=== PATIENT | female | born 1980 ===

== ENCOUNTER 2017-07-11 05:50 | Day surgery (SDC) | payer MEDICARE, OTHER ==
[~2017-07-11] VITALS: Ht 162.6 cm; Wt 93.0 kg
[2017-07-11] VITALS (10 sets, daily range): BP systolic 107–117; BP diastolic 54–79
[2017-07-11] MEDS ORDERED: WELLBUTRIN SR100 MG ORAL (06:30)
[2017-07-11] MEDS ORDERED: AMBIEN10 M1 ORAL (06:30)
[2017-07-11] MEDS ORDERED: MIRTAZAPINE15 M3 ORAL (06:31)
[2017-07-11] MEDS ORDERED: MULTIVITAMINS1 EAC2 ORAL (06:32)
[2017-07-11] MEDS ORDERED: Bupivacaine 0.25% Inj 30ml INJ ONE (06:47)
[2017-07-11] MEDS ORDERED: Bacitracin Oint 15gm Tube TOPIC ONE (06:47)
[2017-07-11] MEDS ORDERED: TransDerm Scop 1mg/72HR Patch TDERMAL ONE (06:47)
[2017-07-11] MEDS ORDERED: Muri-Lube ONE ×2 (06:47→09:32)
[2017-07-11] MEDS ORDERED: Lidocaine 1% 10mg/ml/EPI 0.01mg/ml 50ml INJ ONE (06:48)
[2017-07-11] MEDS ORDERED: ceFAZolin sod 2 GM in NS 55 ML IVPB ONE (07:00)
[2017-07-11] MEDS ORDERED: ceFAZolin sod 1 GM in NS 55 ML IVPB ONE (07:00)
[2017-07-11] MEDS ORDERED: NS Irrig 1000ml ONE (07:30)
[2017-07-11] MEDS ORDERED: fentaNYL 100 mcg/2 mL IV ONE (07:30)
[2017-07-11] MEDS ORDERED: Ketorolac 30mg Inj ONE (07:30)
[2017-07-11] MEDS ORDERED: Propofol 200mg/20ml IV ONE (07:30)
[2017-07-11] MEDS ORDERED: Dexamethasone 4mg/ml vial ONE (07:30)
[2017-07-11] MEDS ORDERED: Zemuron 50mg/5ml Inj IV ONE (07:30)
[2017-07-11] MEDS ORDERED: LR 1000ml ONE (07:30)
[2017-07-11] MEDS ORDERED: Succinylcholine 20mg/ml 10ml vial ONE (07:30)
[2017-07-11] MEDS ORDERED: Midazolam 2mg/2ml Inj ONE (07:30)
[2017-07-11] MEDS ORDERED: Morphine Sulfate 10mg/ml Inj ONE (07:30)
--- NOTE | 2017-07-11 07:32 | Pre-Procedure Note/Attestation ---
Pre-Procedure Note/Attestation Complete Prior to Procedure Planned Procedure: bilateral Indications for Procedure Pre-Operative Diagnosis: gender dysphoria Attestation I attest that I discussed the nature of the procedure; its benefits; risks and complications; and alternatives (and the risks and benefits of such alternatives ), prior to the procedure, with the patient (or the patient's legal underwriting account representative). I attest that, if there was a reasonable possibility of needing a blood transfusion, the patient (or the patient's legal underwriting account representative) was given the [facility] standardized written summary, pursuant to the [place] Blood Safety Act ([place] Health and Safety Code # 1645, as amended). I attest that I re-evaluated the patient just prior to the surgery and that there has been no change in the patient's H&P, except as documented below: GAIL CHAHAL M.D. Jul 11, 2017 07:32
[2017-07-11] MEDS ORDERED: Dyna-Hex 2% Top Sol 2oz TOPIC ONE (08:30)
[2017-07-11] MEDS ORDERED: Metoclopramide 10mg/2ml Inj IVP PRN (08:30)
[2017-07-11] MEDS ORDERED: Ketorolac 30mg Inj IV PRN (08:30)
[2017-07-11] MEDS ORDERED: DiphenhydrAMINE 50mg/ml Inj IVP PRN (08:30)
[2017-07-11] MEDS ORDERED: Meperidine 50mg/ml Inj(FOR RIGORS ONLY) IV PRN (08:30)
[2017-07-11] MEDS ORDERED: LR 1000ml 1,000 ML IVLG SCH (08:30)
[2017-07-11] MEDS ORDERED: Midazolam 2mg/2ml Inj IVP PRN (08:30)
[2017-07-11] MEDS ORDERED: Hydromorphone 0.5mg/0.5ml inj IVP PRN (08:30)
--- NOTE | 2017-07-11 08:30 | Anethesia Preoperative Eval ---
Anesthesia Pre-op PMH/ROS General Date of Evaluation: Jul 11, 2017 Time of Evaluation: 07:22 Anesthesiologist: Ananda ASA Score: ASA 2 Mallampati Score Class I : Soft palate, uvula, fauces, pillars visible Class II: Soft palate, uvula, fauces visible Class III: Soft palate, base of uvula visible Class IV: Only hard plate visible Mallampati Classification: Class II Surgeon: Pavan Diagnosis: Gender dysphoria Surgical Procedure: Bilateral mastectomy Anesthesia History: none Social History: current smoker Family History: no anesthesia problems Allergies: Coded Allergies: No Known Allergies (Unverified , 07/09/17) Medications: see eMAR Past Medical History Cardiovascular: Denies: HTN, CAD, VT, valve dz, arrhythmia, other Pulmonary: Denies: asthma, COPD, EMANUEL, other Gastrointestinal/Genitourinary: Reports: GERD - mild, Denies: CRI, ESRD, other Neurologic/Psychiatric: Reports: depression/anxiety, Denies: dementia, CVA, TIA, other Endocrine: Denies: DM, hypothyroidism, steroids, other HEENT: Denies: cataract (L), cataract (R), glaucoma, NIKOLAI (L), NIKOLAI (R), other Hematology/Immune: Denies: anemia, DVT, bleeding disorder, other Musculoskeletal/Integumentary: Denies: OA, RA, DJD, DDD, edema, other Other: obesity PMH Narrative: as above PSxH Narrative: none Anesthesia Pre-op Phys. Exam Physician Exam Last Vital Signs Date Time Temp Pulse Resp B/P (MAP) Pulse Ox O2 Delivery O2 Flow Rate FiO2 07/11/17 06:33 98.1 67 18 117/66 97 Room Air Constitutional: NAD Neurologic: CN 2-12 intact Cardiovascular: RRR, no M/R/G Respiratory: CTA Gastrointestinal: S/NT/ND Airway Exam Mallampati Score: Class II MO: full Neck: flexible ROM: full Teeth: intact Dentures: no upper, no lower Anesthesia Pre-op A/P Labs see chart Urine Test Test 07/11/17 06:00 Urine HCG, Qualitative Negative Risk Assessment & Plan Assessment: ASA 2 Plan: GA with ETT PONV prevention Scopolamine patch order is in. Status Change Before Surgery: No Pre-Antibiotics Drug: Ancef 2gr. Given Within 1 Hr of Incision: Yes Time Given: 08:06 HERNESTO ATWOOD M.D. Jul 11, 2017 08:30
--- NOTE | 2017-07-11 12:01 | Operative Note - PDOC ---
Operative Note Operative Note Pre-op Diagnosis: gender dysphoria Procedure: bilateral extended mastectomy, bilateral nipple areola reconstruction with free nipple areola graft Post-op Diagnosis: same as pre-op Surgeon: Pavan Anesthesiologist: Ananda Anesthesia: general Specimen: yes - 1) right breast, 2) left breast Complications: none Condition: stable Estimated Blood Loss: volume - 50 cc Drains: LIAM - x2 Implant(s) used?: No Indications for Procedure gender dysphoria GAIL CHAHAL M.D. Jul 11, 2017 12:00
--- NOTE | 2017-07-11 12:02 | Discharge Instructions ---
Discharge Instructions Discharge Instructions Follow up with: Dr. Chahal Jul 16 1:30 pm Diet: regular Resume Normal Activity?: Yes Activity: ambulate For Surgical Patients Dressing Care: keep dry and clean May shower: No - sponge bathe only For Congestive Heart Failure Reminder Report to your physician any weight gain of 5 pounds or more in one week. GAIL CHAHAL M.D. Jul 11, 2017 12:02
--- NOTE | 2017-07-11 12:08 | Immediate Post-Op Evaluation ---
Immediate Post-Op Evalulation Immediate Post-Op Evalulation Procedure: Bilateral mastectomy with nipple reconstruction Date of Evaluation: Jul 11, 2017 Time of Evaluation: 12:07 IV Fluids: 1600 Blood Products: none Estimated Blood Loss: 100 Urinary Output: 200 Blood Pressure Systolic: 111 Blood Pressure Diastolic: 54 Pulse Rate: 102 Respiratory Rate: 22 O2 Sat by Pulse Oximetry: 98 Temperature (Fahrenheit): 98.6 Pain Score (1-10): 2 Nausea: No Vomiting: No Complications none Patient Status: awake, patent, extubated, none Hydration Status: adequate HERNESTO ATWOOD M.D. Jul 11, 2017 12:08
[2017-07-11] MEDS ORDERED: Norco 5mg/325mg tab ORAL PRN (12:15)
[2017-07-11] MEDS ORDERED: Tylenol #3 tab (300mg/30mg) ORAL PRN (12:15)
[2017-07-11] MEDS ORDERED: Hydromorphone 0.5mg/0.5ml inj SUBQ PRN (12:15)
--- NOTE | 2017-07-11 12:48 | 48 Hour Post Anesthesia Eval ---
Post Anesthesia Evaluation Procedure: Bilateral mastectomy with nipple reconstruction Date of Evaluation: Jul 11, 2017 Time of Evaluation: 12:47 Blood Pressure Systolic: 105 0: 72 Pulse Rate: 89 Respiratory Rate: 20 Temperature (Fahrenheit): 98.2 O2 Sat by Pulse Oximetry: 98 Airway: patent Nausea: No Vomiting: No Pain Intensity: 2 Hydration Status: adequate Cardiopulmonary Status: stable Mental Status/LOC: patient returned to baseline Follow-up Care/Observations: n/a Post-Anesthesia Complications: none Follow-up care needed: ready to discharge HERNESTO ATWOOD M.D. Jul 11, 2017 12:48
[2017-07-11] MEDS ORDERED: D5 1/2NS 1,000 ML IV SCH (15:30)
--- NOTE | 2017-07-11 16:15 | Operative Note - Dictated ---
DATE OF OPERATION: 07/11/2017 PREOPERATIVE DIAGNOSIS: Gender dysphoria. POSTOPERATIVE DIAGNOSIS: Gender dysphoria. PROCEDURE: 1. Bilateral mastectomy. 2. Bilateral nipple-areolar reconstruction with free full-thickness nipple-areolar grafts (each graft 6.25 cm2). 3. Closure of right breast with adjacent tissue transfer (8 x 2 cm). SURGEON: Daniel Browne M.D. ANESTHESIA: General. ESTIMATED BLOOD LOSS: 50 mL. SPECIMENS: 1. Right breast. 2. Left breast. DRAINS: A 15-[place] x2. COMPLICATIONS: None. CONDITION TO RECOVERY ROOM: Stable. INDICATION FOR PROCEDURE: This is a very pleasant 37-year-old transgender male, who has been undergoing the process of transition. He has the appropriate letter of support from his mental health therapist and he also meets all WPATH criteria for top surgery. I have discussed the risks, benefits, and alternatives of the procedure with him including, but not limited to bleeding, infection, scarring, nerve injury, asymmetry, contour deformity, hematoma, seroma, loss of nipple sensation, loss of nipple graft, and need for additional surgery including revision. I discussed the orientation of the incisions and the unpredictable nature of scarring. No guarantees were made regarding the outcome. All of his questions have been answered to the best of my ability. He verbalized understanding with everything that we discussed and wishes to proceed. DESCRIPTION OF PROCEDURE: The patient was identified in the preoperative holding area and marked in the standing position. He was then brought to the operating room where he was placed in the supine position on the operating room table with his arms extended on arm boards. All bony prominences were adequately padded. Sequential compression devices were placed and intravenous antibiotics were administered. After induction of anesthesia, the patient's chest was prepped and draped in sterile fashion. Starting on the left breast first, the nipple-areolar complex was placed on manual stretch. A ivanof bay measuring 2.5 x 2.5 cm was drawn centered around the nipple. Next, a #15 blade scalpel was used to harvest a full thickness composite graft. The graft was subsequently defatted and placed in wet gauze and placed on the back table. Next, I then made inframammary fold incision using a #10 blade scalpel. I then proceeded to dissect down through the subcutaneous tissues until the level of the pectoralis major fascia was reached. I then made the superior breast incision with a #10 blade scalpel. Dissection proceeded down through the subcutaneous tissues until Edna fascia was reached. Skin hooks were then used to retract the skin and a plane of dissection was then created between the breast parenchyma and the subcutaneous tissues heading in a superior direction until approximately at the level of the clavicle was reached. After this was done, I then proceeded to elevate the breast tissue off of the pectoralis major fascia proceeding from a medial to a lateral direction. The specimen was subsequently passed off the table. Hemostasis was achieved and the wound was irrigated. I placed a #15 [place] drain within the wound and brought it out through a separate stab incision and secured the drain using a 2-0 silk suture. I then shifted my attention to the contralateral side where the identical procedure was performed. Skin ken were used to temporarily reapproximate the skin. However, on the right breast there was an area laterally that could not be closed despite wide undermining in all directions. The gap between the skin in this area was approximately 8 x 2 cm. I then proceeded to extend the incision in a lateral direction in an oblique orientation heading towards the axilla. I then proceeded to undermine the inferior skin flap in a inferior and lateral direction, taking care to preserve the perforating intercostal vessels. After this was done, I was then able to advance the inferior tissues in a superior direction such that the skin could be reapproximated without any undue tension. Skin ken were then placed to reapproximate the skin in this area and the patient was then sat up on the operating room table, it appeared that he had very reasonable symmetry between the two sides. A marking pen was then used to draw the proposed location of new nipple-areolar complex. The patient was then placed back in the supine position. Interrupted #0 Vicryl sutures were used to reapproximate Edna fascia on each side. The skin ken were removed. Interrupted 3-0 PDS suture was used to close the dermal layer followed by running 3-0 Monocryl suture for the skin. Next, the marking corresponding to the new nipple-areolar complex on each side was incised using a #15 blade scalpel. The intervening skin was then deepithelialized. Each of the nipple-areolar grafts were then brought out and placed on the appropriate side using running 5-0 fast-absorbing suture. Next, several 2-0 silk suture ties were placed around the periphery of each nipple-areolar graft. A skin graft bolster was then fashioned and secured into place over each nipple-areolar graft using silk suture ties. Next, the incisions were infiltrated with a total of 40 mL of local anesthetic consisting of equal parts of 1% lidocaine with epinephrine and 0.25% plain Marcaine. Sterile dressings were then applied. The patient tolerated the procedure well and was sent to the recovery room in stable condition. All instrument, sharp, and sponge counts were correct at the conclusion of the case. Daniel Browne M.D. DR: ANGELICA JOB#: [id number] CC: GERA
== END 2017-07-11 14:40 | disposition home or self-care (01) ==
LOC: SUR 05:50
DX: F64.9 Gender identity disorder, unspecified (principal); K21.9 Gastro-esophageal reflux disease without esophagitis; F32.9 Major depressive disorder, single episode, unspecified; F41.9 Anxiety disorder, unspecified
CPT/HCPCS: 14040; 15200; 19304; 81025; J0330; J0690; J1100; J1885; J2250; J2270; J2405; J2704; J3010; J3490; J7120; 94003; 94150